=== PATIENT | male | born 1975 | race Caucasian/White ===

== ENCOUNTER 2016-06-02 22:41 | Emergency (ER) | payer BC ==
[~2016-06-02] VITALS: Ht 193 cm; Wt 84.5 kg
[2016-06-02 23:27] LABS: HEMATOCRIT 43.6 % (38.0-50.0); MCH 28.6 PG (29.0-34.0); MCHC 33.3 G/DL (30.0-36.0); MEAN PLAT.VOLUME 10.2 uM^3 (9.0-12.4); PLATELET COUNT 198 K/uL (156-360); RBC DIS.WIDTH-SD 37.9 % (39-53); RED BLOOD COUNT 5.07 M/uL (4.00-5.50); WHITE BLOOD COUNT 7.9 K/uL (4.1-10.2)
[2016-06-02 23:35] LABS: CHLORIDE 108 mEq/L (99-109); SODIUM 140 mEq/L (136-147)
[2016-06-02 23:36] LABS: MAGNESIUM 1.9 mg/dL (1.3-2.7)
[2016-06-02 23:37] LABS: GLUCOSE 91 mg/dL (70-99)
[2016-06-02 23:38] LABS: INTER. NORMALIZED RATIO 1.1; PTT 28.9 (25-32)
[2016-06-02 23:39] LABS: ANION GAP 8 MEQ/L (2-14)
[2016-06-02 23:41] LABS: GFR ESTIMATE (CALCULATED) > 59 mL/min/
[2016-06-02 23:42] LABS: UREA NITROGEN (BUN) 22 mg/dL (9-23)
[2016-06-02 23:46] LABS: TROP-I INTERPRETATION NEGATIVE; TROPONIN-I < 0.01 ng/mL (0.0-0.30)
[2016-06-03 01:42] VITALS: BP 106/71
== END 2016-06-03 01:45 | disposition home or self-care (01) ==
LOC: EME 22:41
PROVIDERS: Emergency Medicine
PROC: 5A2204Z Restoration of Cardiac Rhythm, Single (ICD-10-PCS; principal; 2016-06-02)
DX: I48.91 Unspecified atrial fibrillation (principal); Z87.891 Personal history of nicotine dependence
CPT/HCPCS: 71010; 80048; 83735; 84100; 84484; 85027; 85610; 85730; 93005; 99281; 99285; J7030